=== PATIENT | female | born 1965 | race Caucasian/White ===

== ENCOUNTER 2016-12-24 11:10 | Emergency (ER) | payer OTHER, BC ==
[~2016-12-24] VITALS: Ht 172.7 cm; Wt 65.8 kg
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
[2016-12-24] MEDS ORDERED: CYCLOBENZAPRINE 10 MG TABLET. PO ONE ×2 (12:30)
[2016-12-24] MEDS ORDERED: NAPROXEN 500 MG TABLET PO ONE (12:30)
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
[2016-12-24] MEDS ORDERED: NAPR375T3 PO (13:43)
[2016-12-24] MEDS ORDERED: CYCL10TA2 PO (13:43)
[2016-12-24 13:52] VITALS: BP 120/73
--- NOTE | 2016-12-24 14:42 | EKG ---
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
== END 2016-12-24 13:52 | disposition home or self-care (01) ==
LOC: ER 11:10
DX: R07.89 Other chest pain (principal); M54.6 Pain in thoracic spine; Z98.51 Tubal ligation status; V49.59XA Passenger injured in collision with other motor vehicles in traffic accident, initial encounter; Y93.89 Activity, other specified; Y99.8 Other external cause status; Y92.488 Other paved roadways as the place of occurrence of the external cause
CPT/HCPCS: 71020; 72072; 93005; 99284-25